=== PATIENT | female | born 1940 | race Caucasian/White ===

== ENCOUNTER 2021-03-21 09:29 | Emergency (ER) | payer MEDICARE, BC ==
[2021-03-21 09:36] VITALS: BP 132/66; PULSE 91; RESP 18; TEMP 98.6
[2021-03-21] MEDS ORDERED: predniSONE 50 MG TAB PO STA (10:25)
[2021-03-21] MEDS ORDERED: diphenhydrAMINE 25 MG CAP PO STA (10:25)
--- NOTE | 2021-03-21 10:30 | ED ---
General Adult HPI - General Chief complaint: Skin/Abscess/Foreign Body Stated complaint: Rash Time Seen by Provider: 03/21/21 09:51 Source: patient, RN notes reviewed Mode of arrival: ambulatory Limitations: no limitations - History of Present Illness Initial comments: 81-year-old female without much significant past medical history presents to the emergency room for a chief complaint of rash. Patient states she has a pruritic rash to the arms back and chest. Patient states this started about a week ago. Patient states last night it spread to her buttock. Patient states she was going to see her primary care provider tomorrow but she became desperate because it was so itchy. Patient has not been taking anything for this. She denies any swelling of the lips tongue or throat. Patient did start using a new lotion a couple weeks ago and also has been outside cutting back her garden every day for the past week. States that taking hot showers worsens or itching. Patient has no other complaints at this time including shortness of breath, chest pain, abdominal pain, nausea or vomiting, headache, or visual changes. - Related Data Previous Rx's Medication Instructions Recorded diphenhydrAMINE HCL [Benadryl] 25 mg PO QID PRN #30 tab 03/21/21 predniSONE 50 mg PO DAILY #4 tablet 03/21/21 Allergies Allergy/AdvReac Type Severity Reaction Status Date / Time No Known Allergies Allergy Verified 03/21/21 09:36 Review of Systems ROS Statement: Those systems with pertinent positive or pertinent negative responses have been documented in the HPI. ROS Other: All systems not noted in ROS Statement are negative. Past Medical History Past Medical History: No Reported History History of Any Multi-Drug Resistant Organisms: None Reported Past Surgical History: Section Past Psychological History: No Psychological Hx Reported Smoking Status: Never smoker Past Alcohol Use History: Occasional Past Drug Use History: None Reported General Exam Limitations: no limitations General appearance: alert, in no apparent distress Head exam: Present: atraumatic Eye exam: Present: normal appearance, PERRL, EOMI. Absent: scleral icterus, conjunctival injection ENT exam: Present: normal exam, mucous membranes moist Neck exam: Present: normal inspection, full ROM. Absent: tenderness Respiratory exam: Present: normal lung sounds bilaterally. Absent: respiratory distress, wheezes Cardiovascular Exam: Present: regular rate, normal rhythm, normal heart sounds GI/Abdominal exam: Present: soft, normal bowel sounds. Absent: distended, tenderness Skin exam: Present: warm, dry, intact, rash (Patient has erythematous papular and urticarial rash noted to the arms chest and back.) Course Vital Signs 03/21/21 09:33 Temperature 98.6 F Pulse Rate 91 Respiratory 18 Rate Blood Pressure 132/66 O2 Sat by Pulse 99 Oximetry Medical Decision Making - Medical Decision Making patient's rash is consistent with urticaria. We will start her on Benadryl and a steroid. She will follow-up with her doctor. She'll return here for any worsening symptoms. Disposition Clinical Impression: Generalized rash Disposition: HOME SELF-CARE Condition: Good Instructions (If sedation given, give patient instructions): Acute Rash (ED) Additional Instructions: Please take medications as directed. Do not drive if taking Benadryl. Follow- up with your doctor. Return to the emergency room for any worsening symptoms. Prescriptions: diphenhydrAMINE HCL [Benadryl] 25 mg PO QID PRN #30 tab PRN Reason: Itching predniSONE 50 mg PO DAILY #4 tablet Is patient prescribed a controlled substance at d/c from ED?: No Referrals: Yusra Vo MD [Primary Care Provider] - 1-2 days Time of Disposition: 10:27
== END 2021-03-21 10:42 | disposition home or self-care (01) ==
LOC: EC 09:29
DX: L50.9 Urticaria, unspecified (principal)
CPT/HCPCS: 99282; J7512

== ENCOUNTER → 2021-03-23 | Outpatient (CLI) | payer MEDICARE, BC ==
[2021-03-23 23:12] LABS: Basophils # (A) 0.01 X 10*3/uL (0.00-0.10); Basophils % (A) 0.1 %; Eosinophils # (A) 0 X 10*3/uL (0.04-0.35); Eosinophils % (A) 0 %; HCT 40.9 % (37.2-46.3); HGB 13.6 g/dL (12.0-15.0); Lymphocytes # (A) 1.26 X 10*3/uL (0.90-5.00); Lymphocytes % (A) 17.8 %; MCHC 33.3 g/dL (32.0-37.0); MCV 102.3 fL (80.0-97.0); Mean Platelet Volume 11.1 fL (9.5-12.2); Monocytes # (A) 0.12 X 10*3/uL (0.20-1.00); Monocytes % (A) 1.7 %; Neutrophils # (A) 5.66 X 10*3/uL (1.80-7.70); Neutrophils % (A) 79.8 %; Platelet Count 183 X 10*3/uL (140-440); RDW 12.6 % (11.5-14.5); WBC 7.09 X 10*3/uL (4.50-10.00)
[2021-03-24 02:34] LABS: % Iron Saturation 35.86 (12.00-45.00); Total Iron Binding Capacity 335 ug/dL (228-460)
[2021-03-24 03:46] LABS: ALT 18 U/L (8-44); AST 26 U/L (13-35); African American GFR (CKD) 75.6 (60.0-200.0); Albumin 4.6 g/dL (3.8-4.9); Albumin/Globulin Ratio 2.53 (1.60-3.17); Alkaline Phosphatase 88 U/L (41-126); Blood Urea Nitrogen 21.1 mg/dL (9.0-27.0); Chloride 103 mmol/L (96-109); Folate, Serum >20.00 ng/mL (4.40-31.00); Globulin 1.8 g/dL (1.6-3.3); Glucose 118 mg/dL (70-110); Iron 120 ug/dL (50-170); Non-African American GFR(CKD) 65.3 (60.0-200.0); Potassium 4.4 mmol/L (3.5-5.5); Sodium 143 mmol/L (135-145); Total Protein 6.4 g/dL (6.2-8.2)
== END | disposition home or self-care (01) ==
LOC: LABWHC1 15:48
PROVIDERS: ATTEND Dermatology MOHS-Micrographic Surgery
DX: L30.9 Dermatitis, unspecified (principal)
CPT/HCPCS: 36415; 80053; 82607; 82728; 82746; 83540; 83550; 85025